=== PATIENT | female | born 1930 | race Caucasian/White ===

== ENCOUNTER 2016-08-31 17:59 | Observation (INO) | payer MEDICARE ==
[2016-08-31] MEDS ORDERED: MORPHINE SULFATE 2 MG INJ IV PRN (18:29)
[2016-08-31] MEDS ORDERED: Zofran 4 MG/2 ML VIAL IV PRN (18:29)
[2016-08-31] MEDS ORDERED: Sodium Chloride 0.9% 1000 ML 1,000 ML IV SCH (18:30)
--- NOTE | 2016-08-31 22:17 | XRAY ---
Indication: Abdominal pain. Jaundice. Abnormal gallbladder sonogram. Multiple contiguous axial images obtained through the abdomen and pelvis using 80 cc Isovue 370 contrast. Comparison: None Lung bases demonstrates bibasilar dependent atelectasis and right infrahilar calcified nodes. Heart is not enlarged. Gallbladder is markedly distended up to 12 cm with intraluminal sludge. No gallstones. There is abnormal intra-and extrahepatic biliary distention. Proximal and distal common bile duct up to 17 mm in diameter. Head of the pancreas demonstrates 3.5 cm hypodense mass with mass effect effacing the common bile duct and IVC. No abnormal pancreatic duct dilatation or calcifications. No free fluid/air. Noncontrasted stomach and bowel loops appear nonobstructed. There is mild diffuse scattered colonic fecal debris. Minimal descending diverticulosis. Remaining liver, spleen, adrenal glands, kidneys, ureters, bladder, and uterus appear unremarkable. Moderate aortoiliac calcifications. No AAA or pathologic retroperitoneal lymphadenopathy. Osseous structures intact with mild/moderate degenerative changes throughout the spine. Multilevel thoracolumbar Schmorl nodes. Impression: 1. Abnormal distended gallbladder with intraluminal sludge. Finding corresponds to the ultrasound finding. 2. There is a 3.5 cm pancreatic head noncalcified mass with mass effect. The common bile duct is effaced and probably accounts for the abnormal biliary tree distention. 3. Mild fecal stasis without obstruction and colonic diverticulosis. Comment: Preliminary interpretation was made by [facility]. No discrepancy. CTDI 14.75
[2016-08-31] MEDS ORDERED: Sodium Chloride 0.9% 1000 ML 1,000 ML ONE (23:03)
[2016-08-31 23:46] VITALS: BP 145/75; PULSE 67; O2SAT 93
--- NOTE | 2016-09-04 10:51 | SSS ---
Was transferred to [facility]. DISCHARGE DIAGNOSIS: 1. 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 2. HYPERTENSION. 3. HYPERLIPIDEMIA. HISTORY OF PRESENT ILLNESS: The patient is an 86 y/o WF patient who presented to Dr. Swartz' office earlier today. She was noted to be extremely jaundiced. She was sent over for labs and CT scan and admitted to the hospital for further evaluation and management. PAST MEDICAL HISTORY: Again significant for the hypertension and hyperlipidemia. HOME MEDICATIONS: Aspirin 81 mg a day, lisinopril 20 mg a day along with lisinopril hydrochlorothiazide 20/12.5 mg a day, metoprolol 25 mg a day, simvastatin 20 mg at night. PHYSICAL EXAMINATION: Reveals a jaundice-appearing WF currently in no obvious distress. HEENT: Normocephalic and atraumatic. Mostly edentulous. Extraocular movements intact. There is scleral icterus present. NECK: Supple without lymphadenopathy, thyromegaly, or JVD. CHEST: Clear to auscultation. Good air movement bilaterally. HEART: Regular rate and rhythm without murmurs, rubs, or gallops. ABDOMEN: Mildly tender to palpation. No palpable masses were felt. EXTREMITIES: Without cyanosis, clubbing, or edema. NEURO: The patient is alert and oriented X 3. LABORATORY DATA: Showed CT scan of the mass in the head of the pancreas compressing the superior mesenteric vein presumably malignant. Biliary duct obstruction was noted with a bile duct measuring 1.7 cm. Distended gallbladder with small stones and sludge was also present. The patient's WBC was 7700, Hgb 13.6, platelet count 286,000. The patient's chemistry showed normal electrolytes, BUN, and creatinine. Her total bilirubin however was 9.0, AST 116, ALT 114, Alk. phos. 342. The patient and her family were discussed the preliminary diagnosis and the plan was to transfer the patient to [facility] for evaluation and management by their gastrointestinal team to relieve the obstructive jaundice. The patient has been made aware of the preliminary diagnosis otherwise of pancreatic cancer. They are understanding of the gravity of the situation and due desire the transfer to [facility] for more advanced care at this time.
== END 2016-09-01 01:50 ==
LOC: MED SURG 17:59
PROVIDERS: ADMIT Internal Medicine; ATTEND Internal Medicine
DX: C25.0 Malignant neoplasm of head of pancreas (principal); K83.1 Obstruction of bile duct; R17 Unspecified jaundice; I10 Essential (primary) hypertension; E78.5 Hyperlipidemia, unspecified; Z79.899 Other long term (current) drug therapy; E86.0 Dehydration
CPT/HCPCS: 74177; G0378